=== PATIENT | female | born 2000 | race Two or more races ===

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

== ENCOUNTER 2018-07-09 18:09 | Inpatient (IN) | payer MEDICAID ==
[~2018-07-09] VITALS: Ht 157.5 cm; Wt 55.8 kg
[2018-07-09 21:21] LABS: BASOPHIL % 0.3 % (0-2); PLATELET COUNT 356 x10^3mcL (130-400); RED CELL DISTRIBUTION WIDTH 12.8 % (11.5-14.5)
[2018-07-09 21:30] LABS: CALCIUM 9.2 mg/dL (8.5-10.1); CARBON DIOXIDE 24.5 mmol/L (21-32); CHLORIDE SERUM 102 mmol/L (98-107); CREATININE SERUM 0.8 mg/dL (0.6-1.0); GFR1 > 60 mL/min; GLUCOSE SERUM 71 mg/dL (74-106); POTASSIUM SERUM 3.7 mmol/L (3.5-5.1); SODIUM SERUM 141 mmol/L (136-145)
[2018-07-09 21:39] LABS: ALBUMIN 3.9 g/dL (3.4-5.0); ALKALINE PHOSPHATASE 56 U/L (46-116); ALT/SGPT 16 U/L (14-59); AST/SGOT 23 U/L (15-37); BILIRUBIN TOTAL 0.46 mg/dL (0.20-1.00); LIPASE 70 IU/L (73-393); TOTAL PROTEIN, SERUM 8.1 g/dL (6.4-8.2)
[2018-07-10] MEDS ORDERED: TYLENOL ARTHRI650 MG PO (00:49)
[2018-07-10] MEDS ORDERED: IBUPROFEN400 MG PO (00:49)
[2018-07-10 01:04] LABS: microscopic required? YES; urine erythrocyte NEGATIVE (NEGATIVE)
[2018-07-10 01:22] LABS: AMPHETAMINE QUAL UR NONE DETECTED (See below)
[2018-07-10 01:27] LABS: PHOSPHOROUS 3.3 mg/dL (2.5-4.9)
[2018-07-10 01:36] LABS: FREE T4 1.11 ng/dL (0.76-1.46); FREE THYROXINE INDEX 2.6 ug/dL (1.4-4.5); T4(THYROXINE) 7.4 ug/dL (4.7-13.3)
[2018-07-10 01:59] LABS: CHOLESTEROL/HDL RATIO 2.6
[2018-07-10 02:24] LABS: T3 TOTAL 0.93 ng/mL
[2018-07-10 02:50] VITALS: BP 114/68
[2018-07-10 05:39] VITALS: BP 107/60
[2018-07-10 06:34] LABS: CALCIUM 7.9 mg/dL (8.5-10.1); CARBON DIOXIDE 23.7 mmol/L (21-32); CHLORIDE SERUM 109 mmol/L (98-107); CREATININE SERUM 0.6 mg/dL (0.6-1.0); GFR1 > 60 mL/min; GLUCOSE SERUM 72 mg/dL (74-106); MAGNESIUM 1.8 mg/dL (1.8-2.4); PHOSPHOROUS 3.4 mg/dL (2.5-4.9); POTASSIUM SERUM 3.9 mmol/L (3.5-5.1); SODIUM SERUM 143 mmol/L (136-145)
[2018-07-10 08:07] LABS: BASOPHIL % 0.3 % (0-2); PLATELET COUNT 234 x10^3mcL (130-400); RED CELL DISTRIBUTION WIDTH 12.8 % (11.5-14.5)
[2018-07-10 09:00] VITALS: BP 107/67
[2018-07-10 17:19] VITALS: BP 118/73
[2018-07-10 21:23] VITALS: BP 122/72
[2018-07-11 05:26] VITALS: BP 101/53
[2018-07-11 06:28] LABS: BASOPHIL % 0.6 % (0-2); PLATELET COUNT 224 x10^3mcL (130-400); RED CELL DISTRIBUTION WIDTH 12.9 % (11.5-14.5)
[2018-07-11 06:36] LABS: CALCIUM 8.4 mg/dL (8.5-10.1); CHLORIDE SERUM 106 mmol/L (98-107); CREATININE SERUM 0.6 mg/dL (0.6-1.0); GFR1 > 60 mL/min; SODIUM SERUM 139 mmol/L (136-145)
[2018-07-11 06:53] LABS: GLUCOSE SERUM 56 mg/dL (74-106)
[2018-07-11 09:21] VITALS: BP 108/60
[2018-07-11 16:51] VITALS: BP 104/71
[2018-07-11 20:53] VITALS: BP 116/71
[2018-07-12 05:54] VITALS: BP 111/78
[2018-07-12 07:04] LABS: CALCIUM 8.4 mg/dL (8.5-10.1); CARBON DIOXIDE 27.2 mmol/L (21-32); CHLORIDE SERUM 108 mmol/L (98-107); CREATININE SERUM 0.6 mg/dL (0.6-1.0); GFR1 > 60 mL/min; GLUCOSE SERUM 77 mg/dL (74-106); POTASSIUM SERUM 3.5 mmol/L (3.5-5.1); SODIUM SERUM 144 mmol/L (136-145)
[2018-07-12 07:08] LABS: BASOPHIL % 0.5 % (0-2); PLATELET COUNT 164 x10^3mcL (130-400); RED CELL DISTRIBUTION WIDTH 12.7 % (11.5-14.5)
[2018-07-12 08:50] VITALS: BP 122/71
[2018-07-12 12:17] LABS: C REACTIVE PROTEIN 1.1 mg/dL (<=0.9)
[2018-07-12 12:59] VITALS: BP 122/76
[2018-07-12] MEDS ORDERED: ZOFRAN8 MG PO (15:35)
[2018-07-12 17:02] VITALS: BP 145/95
[2018-07-12 17:06] VITALS: BP 126/88
== END 2018-07-12 17:47 | disposition home or self-care (01) | DRG 776 ==
LOC: ED 18:09 → MU 07-10 00:44
PROVIDERS: Emergency Medicine; Internal Medicine Gastroenterology; ADMIT General Practice
PROC: 0DB78ZX Excision of Stomach, Pylorus, Via Natural or Artificial Opening Endoscopic, Diagnostic (ICD-10-PCS; principal; 2018-07-12 13:30)
DX: F12.10 Cannabis abuse, uncomplicated (principal); N17.0 Acute kidney failure with tubular necrosis; E83.51 Hypocalcemia; E16.2 Hypoglycemia, unspecified; R80.9 Proteinuria, unspecified; E86.0 Dehydration; Z66 Do not resuscitate; Z79.1 Long term (current) use of non-steroidal anti-inflammatories (NSAID)
CPT/HCPCS: 36600; 43235; 82962; 84439; C9113; G0480; J1200; J1610; J1885; J2250; J2310; J2405; J2550; J2765; J3010; J3490; J7030; J7042; Q0092

== ENCOUNTER 2018-10-31 20:56 | Emergency (ER) | payer OTHER ==
[~2018-10-31] VITALS: Ht 157.5 cm; Wt 59.4 kg
[~2018-10-31 20:56] MED LIST: IBUPROFEN400 MG PO; TYLENOL ARTHRI650 MG PO; ZOFRAN8 MG PO
[2018-10-31 21:01] VITALS: Ht 157.5 cm; Wt 59.4 kg
[2018-10-31 21:47] VITALS: BP 109/66
== END 2018-10-31 21:47 | disposition home or self-care (01) ==
LOC: ED 20:56
DX: S60.222A Contusion of left hand, initial encounter (principal); V43.92XA Unspecified car occupant injured in collision with other type car in traffic accident, initial encounter; Y93.89 Activity, other specified; Y92.488 Other paved roadways as the place of occurrence of the external cause; Y99.8 Other external cause status